=== PATIENT | male | born 1950 | race Hispanic/Latino ===

== ENCOUNTER 2021-02-23 11:19 | Observation (INO) | payer OTHER ==
[~2021-02-23] VITALS: Ht 172.7 cm; Wt 91.0 kg
[2021-02-23] MEDS ORDERED: TETANUS/DIPHTHERIA TOXOID [ADULT] 0.5 ML VIAL IM SCH (12:30)
[2021-02-23] MEDS ORDERED: CYCLOBENZAPRINE HCL 10 MG TABLET PO SCH (12:30)
[2021-02-23] MEDS ORDERED: HYDROCODONE/ACETAMINOPHEN 10/325 MG TAB PO SCH (12:30)
[2021-02-23 13:30] LABS: BASOPHILS % (AUTO) 0.4 % (0.0-5.0); EOSINOPHILS % (AUTO) 0.1 % (0.0-8.0); HEMATOCRIT 47.5 % (42-54); LYMPHOCYTES % (AUTO) 10.6 % (21.0-51.0); MEAN CORPUSCULAR HEMOGLOBIN 28.4 pg (27.0-33.0); MEAN CORPUSCULAR HGB CONC 33.3 g/dL (32.0-36.0); MEAN CORPUSCULAR VOLUME 85.4 fL (79-99); MONOCYTES % (AUTO) 6.6 % (3.0-13.0); NEUTROPHILS % (AUTO) 81.9 % (40.0-77.0); PLATELET COUNT (AUTO) 224 K/uL (130-400); RED BLOOD CELL COUNT(AUTO) 5.56 MIL/uL (4.50-6.20); RED CELL DISTRIBUTION WIDTH 12.3 % (11.0-15.5); WHITE BLOOD COUNT (AUTO) 16.2 K/uL (4.8-10.8)
[2021-02-23 13:35] LABS: CREATININE 1.1 mg/dL (0.5-1.5)
[2021-02-23 13:39] LABS: ALBUMIN 4.4 g/dL (3.5-5.0); BILIRUBIN,TOTAL 0.4 mg/dL (0.2-1.0); TOTAL PROTEIN, SERUM 8.6 g/dL (6.0-8.3)
[2021-02-23] MEDS ORDERED: MORPHINE 4 MG SYG IV PRN (14:00)
[2021-02-23] MEDS ORDERED: HYDROCODONE/ACETAMINOPHEN 5/325 MG TAB PO PRN ×2 (14:00)
[2021-02-23] MEDS ORDERED: ONDANSETRON 4MG INJ IV PRN (14:00)
[2021-02-23] MEDS ORDERED: ACETAMINOPHEN 325 MG TAB PO PRN ×2 (14:00)
[2021-02-23 14:20] LABS: HEMOGLOBIN A1C 6.2 % (4.0-6.0)
[2021-02-23] MEDS: METOPROLOL TARTRATE 25 MG TAB PO SCH ×2 (15:06→22:20)
[2021-02-23 15:39] VITALS: BP 151/81
[2021-02-23 17:37] LABS: APPEARANCE,URINE Clear (CLEAR); BILIRUBIN,URINE Negative (NEGATIVE); COLOR,URINE Yellow (YELLOW); GLUCOSE, URINE (UA) 500 mg/dL (NEGATIVE); KETONES,URINE Negative (NEGATIVE); LEUKOCYTE ESTERASE ,URINE Small (NEGATIVE); NITRATE,URINE Negative (NEGATIVE); OCCULT BLOOD,URINE Moderate (NEGATIVE); PH,URINE 5.5 (5.0-8.0); PROTEIN,URINE Trace mg/dL (NEGATIVE)
[2021-02-23 17:46] LABS: BACTERIA,URINE Rare /HPF (None Seen); CALCIUM OXALATE CRYSTALS,UR Rare /LPF (None Seen); SQUAMOUS EPITHELIAL CELL,UR Rare /HPF (0-2)
[2021-02-23 21:37] VITALS: BP 142/75
[2021-02-23] MEDS: FAMOTIDINE 20MG VIAL IV SCH (22:20)
[2021-02-23 22:26] VITALS: BP 154/74
[2021-02-23] MEDS ORDERED: LISI10TA24 PO (22:29)
[2021-02-23] MEDS ORDERED: TRAM50TA4 PO (22:29)
[2021-02-24] VITALS (25 sets, daily range): BP systolic 109–156; BP diastolic 64–104
[2021-02-24] MEDS: MORPHINE 2 MG SYG IV PRN ×2 (03:26→06:55)
[2021-02-24 04:07] LABS: INR 1.06 (0.85-1.15); PROTHROMBIN TIME 11.5 SEC (9.6-11.6)
[2021-02-24 04:09] LABS: PARTIAL THROMBOPLASTIN TIME 26.5 SEC (26.3-35.5)
[2021-02-24] MEDS ORDERED: ROPIVACAINE 0.5% 5MG/ML 30ML IJ ONE (09:32)
[2021-02-24] MEDS ORDERED: LIDOCAINE PF 100MG/5ML (2%) SYRINGE 5ML ONE (09:33)
[2021-02-24] MEDS ORDERED: DEXAMETHASONE SOD PHOSPHATE 10MG/ML 1ML VIAL ONE (09:33)
[2021-02-24] MEDS ORDERED: ONDANSETRON 4MG INJ ONE (09:33)
[2021-02-24] MEDS ORDERED: ALBUMIN (HUMAN) 5% 250 ML IV ONE (09:33)
[2021-02-24] MEDS ORDERED: SUCCINYLCHOLINE CHLORIDE 20 MG/ML 10 ML VIAL ONE (09:33)
[2021-02-24] MEDS ORDERED: FENTANYL CITRATE PF 50 MCG/1 ML 2ML VIAL ONE ×2 (09:34→12:53)
[2021-02-24] MEDS ORDERED: NEOSTIGMINE 5MG/5ML SYR IV ONE (09:34)
[2021-02-24] MEDS ORDERED: GLYCOPYRROLATE 1 MG/5 ML SYRINGE ONE (09:34)
[2021-02-24] MEDS ORDERED: PROPOFOL 10 MG/ML 20ML VIAL IV ONE (09:34)
[2021-02-24] MEDS ORDERED: ROCURONIUM 10MG/1ML SYR 10 MG/ML ML ONE (09:35)
[2021-02-24] MEDS ORDERED: MIDAZOLAM HCL 1 MG/ML 2ML VIAL ONE (09:35)
[2021-02-24] MEDS ORDERED: EPHEDRINE SULFATE 50 MG/ML AMPULE ONE (09:47)
[2021-02-24] MEDS: FAMOTIDINE 20MG VIAL IV SCH ×2 (09:50→20:40)
[2021-02-24] MEDS ORDERED: LACTATED RINGERS 1000ML 1,000 ML IV ONE (11:49)
[2021-02-24] MEDS ORDERED: CEFAZOLIN SODIUM 1 GM VIAL IVP ONE ×2 (12:45)
[2021-02-24] MEDS ORDERED: CEFAZOLIN SODIUM 1 GM VIAL ONE (12:51)
[2021-02-24] MEDS ORDERED: OXYMETAZOLINE HCL SPRAY 15 ML BOTTLE ONE (12:54)
[2021-02-24] MEDS ORDERED: PHENYLEPHRINE HCL 10 MG/ML 1ML VIAL IV ONE (12:55)
[2021-02-24] MEDS ORDERED: DIPHENHYDRAMINE HCL 25 MG CAPSULE PO PRN (14:30)
[2021-02-24] MEDS ORDERED: POTASSIUM CHLORIDE 10% ELIXIR 20 MEQ/15 ML UDCUP PO PRN (14:30)
[2021-02-24] MEDS: ACETAMINOPHEN 500 MG TABLET PO SCH ×2 (14:30→20:42)
[2021-02-24] MEDS ORDERED: DiphenhydrAMINE HCL 50 MG/ML VIAL IVP PRN (14:30)
[2021-02-24] MEDS ORDERED: FERROUS FUMARATE 324 MG TABLET PO PRN (14:30)
[2021-02-24] MEDS ORDERED: POTASSIUM CHLORIDE 20MEQ/100ML 100 ML IV PRN (14:30)
[2021-02-24] MEDS ORDERED: HYDROCODONE/ACETAMINOPHEN 5/325 MG TAB PO PRN (14:30)
[2021-02-24] MEDS ORDERED: CALCIUM CARB 500MG PO PRN (14:30)
[2021-02-24] MEDS: 0.9%NACL 1000ML 1,000 ML IV SCH ×2 (15:03→23:51)
[2021-02-24] MEDS: CLINDAMYCIN IVPB 900MG/50ML 50 ML IVPB SCH (20:40)
[2021-02-25 00:03] VITALS: BP 137/79
[2021-02-25] MEDS: CLINDAMYCIN IVPB 900MG/50ML 50 ML IVPB SCH (03:32)
[2021-02-25 04:09] VITALS: BP 134/66
[2021-02-25 04:24] LABS: HEMATOCRIT 36.7 % (42-54); MEAN CORPUSCULAR HEMOGLOBIN 28.7 pg (27.0-33.0); MEAN CORPUSCULAR HGB CONC 33.5 g/dL (32.0-36.0); MEAN CORPUSCULAR VOLUME 85.7 fL (79-99); RED BLOOD CELL COUNT(AUTO) 4.28 MIL/uL (4.50-6.20); RED CELL DISTRIBUTION WIDTH 12.3 % (11.0-15.5); WHITE BLOOD COUNT (AUTO) 11.8 K/uL (4.8-10.8)
[2021-02-25 04:42] LABS: CREATININE 0.9 mg/dL (0.5-1.5); POTASSIUM 3.3 mmol/L (3.5-5.1)
[2021-02-25] MEDS: ACETAMINOPHEN 500 MG TABLET PO SCH ×2 (05:06→14:30)
[2021-02-25] MEDS: KCL 20 MEQ ERTAB PO PRN ×3 (05:46→16:45)
[2021-02-25] MEDS: FAMOTIDINE 20MG VIAL IV SCH ×2 (07:47→20:02)
[2021-02-25] MEDS: HYDROCODONE/ACETAMINOPHEN 5/325 MG TAB PO PRN ×4 (07:49→20:24)
[2021-02-25 08:00] VITALS: BP 132/79
[2021-02-25] MEDS ORDERED: POLYETHYLENE GLYCOL 3350 17 GM POWD.PACK PO SCH (09:00)
[2021-02-25] MEDS: 0.9%NACL 1000ML 1,000 ML IV SCH (10:30)
[2021-02-25] MEDS ORDERED: TRAMADOL HCL 50 MG TABLET PO SCH (11:00)
[2021-02-25 12:00] VITALS: BP 142/77
[2021-02-25] MEDS ORDERED: PSYLLIUM SEED 1 EACH PACKET PO SCH (12:00)
[2021-02-25 16:00] VITALS: BP 147/87
[2021-02-25 20:00] VITALS: BP 131/76
[2021-02-26] MEDS ORDERED: BISACODYL 5 MG TABLET.DR PO PRN (14:30)
[2021-02-27] MEDS ORDERED: BISACODYL 10 MG SUPP.RECT RC PRN (14:30)
== END 2021-02-25 22:10 | disposition home or self-care (01) ==
LOC: EDH 11:24 → EDHIP 13:43 → INTOOBSV 13:43 → 4AH 22:04 → UNDODISOB 02-25 19:30
PROVIDERS: ADMIT Internal Medicine; ATTEND Internal Medicine
DX: S42.292A Other displaced fracture of upper end of left humerus, initial encounter for closed fracture (principal); I10 Essential (primary) hypertension; M54.9 Dorsalgia, unspecified; G89.29 Other chronic pain; Z23 Encounter for immunization; V18.0XXA Pedal cycle driver injured in noncollision transport accident in nontraffic accident, initial encounter; Y93.89 Activity, other specified; Y92.89 Other specified places as the place of occurrence of the external cause; Y99.8 Other external cause status
CPT/HCPCS: 23615; 36415 ×3; 71100; 71250; 73030; 73060; 80048; 80053; 81001; 83036; 84484; 85025; 85027; 85610; 85730; 87635; 90471; 90714; 93005; 96361 ×2; 96365; 96366; 96375 ×2; 96376 ×2; 97039; 97116 ×2; 97161; 97530 ×2; 99285; A4215 ×2; A4221 ×2; A4222 ×2; A4223 ×2; A4649 ×2; A4663 ×2; A4930; A6219; A6223; C1713 ×8; C1776 ×2; G0378 ×56; G8978; G8979; G8980; G8981; G8982; G8983; J0330; J0690 ×3; J1100; J2001; J2250; J2370; J2405; J2704; J2710; J2795; J3010 ×2; J3490 ×9; J7030; J7120 ×2; P9045

== ENCOUNTER 2021-02-26 11:24 | Emergency (ER) | payer OTHER ==
[~2021-02-26] VITALS: Ht 172.7 cm; Wt 88.5 kg
[~2021-02-26 11:24] MED LIST: LISI10TA24 PO; TRAM50TA4 PO
[2021-02-26 11:28] VITALS: BP 162/112
[2021-02-26 12:08] LABS: APPEARANCE,URINE Clear (CLEAR); BILIRUBIN,URINE Negative (NEGATIVE); COLOR,URINE Yellow (YELLOW); GLUCOSE, URINE (UA) Negative (NEGATIVE); KETONES,URINE Negative (NEGATIVE); LEUKOCYTE ESTERASE ,URINE Negative (NEGATIVE); NITRATE,URINE Negative (NEGATIVE); OCCULT BLOOD,URINE Small (NEGATIVE); PROTEIN,URINE Negative (NEGATIVE)
[2021-02-26 12:29] LABS: BACTERIA,URINE Few /HPF (None Seen); WBC,URINE 0-1 /HPF (0-1)
[2021-02-26 13:45] VITALS: BP 130/75
== END 2021-02-26 13:46 | disposition home or self-care (01) ==
LOC: EDH 11:24
DX: R33.9 Retention of urine, unspecified (principal); I10 Essential (primary) hypertension; G89.29 Other chronic pain; M54.9 Dorsalgia, unspecified; M25.512 Pain in left shoulder; Z79.899 Other long term (current) drug therapy
CPT/HCPCS: 51702; 81001

== ENCOUNTER 2021-03-01 21:27 | Emergency (ER) | payer OTHER ==
[~2021-03-01] VITALS: Ht 172.7 cm; Wt 89.4 kg
[2021-03-01 22:45] LABS: BILIRUBIN,URINE SMALL (NEGATIVE); GLUCOSE, URINE (UA) NEGATIVE (NEGATIVE); KETONES,URINE NEGATIVE (NEGATIVE); LEUKOCYTE ESTERASE ,URINE NEGATIVE (NEGATIVE); NITRATE,URINE NEGATIVE (NEGATIVE); OCCULT BLOOD,URINE LARGE (NEGATIVE); PH,URINE 5.5 (5.0-8.0); PROTEIN,URINE 100 mg/dL (NEGATIVE); UROBILINOGEN,URINE 0.2 mg/dL (0.2-1.0)
[2021-03-01 22:51] LABS: APPEARANCE,URINE CLOUDY (CLEAR); COLOR,URINE AMBER (YELLOW)
[2021-03-01 22:56] LABS: RBC,URINE TNTC /HPF (0-1)
[2021-03-01 22:57] LABS: BACTERIA,URINE Rare /HPF (None Seen)
[2021-03-01 22:58] LABS: SQUAMOUS EPITHELIAL CELL,UR None Seen /HPF (0-2)
[2021-03-01] MEDS ORDERED: CEFTRIAXONE 1G VIAL IM ONE (23:00)
[2021-03-01] MEDS ORDERED: CEPH500B PO (23:02)
[2021-03-01] MEDS ORDERED: LIDOCAINE HCL-MPF 1% 2ML VIAL ONE (23:06)
[2021-03-01 23:09] VITALS: BP 143/60
== END 2021-03-01 23:58 | disposition home or self-care (01) ==
LOC: EDH 21:27
DX: R33.9 Retention of urine, unspecified (principal); N39.0 Urinary tract infection, site not specified; I10 Essential (primary) hypertension; Z79.899 Other long term (current) drug therapy
CPT/HCPCS: 51702; 81001; 87088; 96372; 99284; J0696; J3490

== ENCOUNTER 2024-11-14 16:36 | Emergency (ER) | payer OTHER ==
[~2024-11-14] VITALS: Ht 172.7 cm; Wt 90.7 kg
[~2024-11-14 16:36] MED LIST changes: +CEPH500B PO
--- NOTE | 2024-11-14 16:45 | ERN ---
General Chief Complaint: Finger Injury Stated Complaint: LEFT HAND ACCIDENT SAW Time Seen by MD: 16:38 Source: patient History of Present Illness Initial Comments This is a 74-year-old male coming in to be evaluated for left hand injury. Per patient he was working on his band saw and accidentally cut his left hand 2nd and 3rd digits. Allergies: Coded Allergies: No Known Drug Allergies (Unverified Allergy, Unknown, 02/23/21) Home Meds Active Scripts Cephalexin Monohydrate (Keflex) 500 Mg Cap, 500 MG PO TID, #21 CAP Prov:LORIN RAUSCH 03/01/21 Reported Medications Tramadol Hcl (Tramadol HCl) 50 Mg Tablet, 50 MG PO Q6HPRN PRN for PAIN LEVEL 1 TO 5, TAB 02/23/21 Lisinopril (Lisinopril) 10 Mg Tablet, 10 MG PO DAILY, TAB 02/23/21 Past Medical History Past Medical History: Hypertension Medical History Other: CHRONIC BACK PAIN Surgical History Other: LEFT SHOULDER SX Social History Social History: Lives with family ROS Dictation CONSTITUTIONAL: No chills, no fever, no weakness, no diaphoresis, no malaise. HEAD/FACE: No signs of trauma. EENT: No eye pain, no blurred vision, no tearing, no double vision, no ear pain, no ear discharge, no nose pain, no nasal congestion, no throat pain, no throat swelling, no mouth pain. RESPIRATORY: No cough, no orthopnea, no SOB, no stridor, no wheezing. CARDIOVASCULAR: No chest pain, no edema, no palpitations, no syncope. GASTROINTESTINAL/ABDOMINAL: No abdominal pain, no constipation, no diarrhea, no nausea, no vomiting. GENITOURINARY: No abnormal discharge, no dysuria, no frequent urination, no hematuria. No complaints of pain in the genitals. MUSCULOSKELETAL: No back pain, no gout, no joint pain, no joint swelling, no muscle pain, no muscle stiffness, no neck pain. INTEGUMENTARY: No change in color, no change in hair/nails, no dryness, lesion, no lumps, no rash. NEUROLOGICAL/PSYCH: No anxiety, not depressed, no emotional problem, no headache, no numbness, no pre-existing deficit, no history of seizures, no tremors, no weakness. HEMATOLOGIC/LYMPHATIC: Not anemic, no history of blood clots, no apparent bleeding, no bruising, glands not swollen. All Systems Negative, Except as Noted. Physical Exam Physical Exam Dictation VITAL SIGNS: Reviewed. GENERAL APPEARANCE: Alert, oriented x3, no acute distress, obese. HEAD AND FACE: Non-traumatic. EYES: PERRL, pink conjunctivas, eyelid no trauma, anterior chamber clear. EARS: Pinnas intact and no signs of trauma or erythema. Ear canals clear and no discharge. TMs no erythema. NOSE: No discharge, no bleeding. OROPHARYNX: Mouth normal, teeth no caries, tongue pink. Pharynx clear, no erythema. Tonsils no exudates, no abscesses noted. Mucous membrane moist. NECK: Supple, non-tender, no thyromegaly, no masses, no JVD, no bruits. BREAST: Deferred. CHEST: No tenderness, no crepitus, no paradoxical movement, no retractions. LUNGS: Clear, well-ventilated, symmetric, no rales, no wheezing, no rhonchi, no stridor, good breath sounds bilaterally. HEART: Regular rate, regular rhythm, no murmur, no gallops. VASCULAR: No peripheral edema. ABDOMEN: Soft, positive bowel sounds, nondistended, no guarding, nontender, no rebound, no masses no hepatomegaly, no splenomegaly, no Naylor's sign, no hernias. RECTAL: Deferred. GENITAL: Deferred. NEUROLOGICAL: Normal speech, gross motor function intact, gross sensory function intact. MUSCULOSKELETAL: Neck nontender, full range of motion, back nontender, full range of motion. EXTREMITIES: Nontender, full range of motion. Left hand 2nd and 3rd digit distal partial amputation. SKIN: Color pink, dry, no turgor, no rash, no lacerations, no abrasions, no contusions. LYMPHATICS: Deferred. Results Laboratory and Microbiology Labs Reviewed?: Yes EKG/XRAY/US/CT/MRI X-RAY Comment IMAGING REPORT Signed PATIENT: LEIF KILPATRICK MR#: [id number] : 1950 SEX: M AGE: 74 LOCATION: [facility] ORDER [id number] STATUS: [facility] REPORT#: [id number] SERVICE [id number] REASON: finger amputation ORDERING PHYSICIAN: LISSETTE WILCOX MD PROCEDURE: HAND 3V LT - HAND 3+VWS LT LEFT HAND RADIOGRAPHS - 3 VIEWS INDICATION: Pain COMPARISON: None FINDINGS: AP, lateral, and oblique views. Amputation of the distal third digit to the level of the proximal metaphysis of the third distal phalanx, and nondisplaced miniscule cortical fracture fragments along the stump. Amputation of the distal index finger includes amputation of the distal margin of the second distal phalangeal tuft. Chronic mild flexion deformity of the fifth distal interphalangeal joint. No acute fracture of subluxation identified. Remodeling of the ulnar styloid process may be related to remote injury and 9 mm accessory ossicle noted at the same level. Scaphoid bone is intact. Carpal alignment and ulnar variance is within normal limits. Mild arterial wall calcific plaque. IMPRESSION: Amputation of the distal third digit to the level of the proximal metaphysis of the third distal phalanx, and nondisplaced miniscule cortical fracture fragments along the stump. Amputation of the distal index finger includes amputation of the distal margin of the second distal phalangeal tuft. DICTATED BY: HIGINIO ROQUE MD DATE: 11/14/241802 ELECTRONICALLY SIGNED BY: HIGINIO ROQUE MD DATE: 11/14/241806 [facility] MDM: Differential diagnosis: PARTIAL FINGER AMPUTATION, LACERATION, DISTAL PHALANX FRACTURE Rationale: Tests considered and ordered secondary to shared decision making include: Previous outside records reviewed: Old ER visits. Risk of complication and/or morbidity or mortality of patient management: None PATIENT IS A 74-YEAR-OLD GENTLEMAN COMING IN TO BE EVALUATED FOR LEFT HAND PAIN. ON PHYSICAL EXAM PATIENT HAS A PARTIAL DISTAL AMPUTATION OF LEFT HAND 2ND AND 3RD DIGIT. LESIONS WERE CLEANED AND STERILIZED ANESTHESIA WAS PERFORMED USING DIGITAL BLOCK. USING ETHILON 3-0 SUTURES WERE PLACED RUNNING CLOSING THE PARTIAL AMPUTATION THE 3RD DIGIT HEMOSTASIS OBTAINED, 2ND DIGIT DISTAL PARTIAL AMPUTATION FLOWS USING ETHILON 4-0 . SIX SUTURES ON DISTAL 3RD AND SIX SUTURES ON DISTAL SEC. PATIENT WILL BE DISCHARGED IN STABLE CONDITION WITH ANTIBIOTICS. ED Course Orders Procedure Category Date Status Time Cefazolin Sodium 1 Gm PHA 11/14/24 In Process Vial (Ancef 1 Gm V 17:00 Diph,Pertuss(Acell),Tet PHA 11/14/24 Complete Vac/Pf (Tdap) 17:00 Lidocaine Hcl 1% 20ml PHA 11/14/24 In Process Vial (Lidocaine Hc 16:42 Laceration Tray Set CPOE 11/14/24 Transmitted Up (Er) 16:50 Wound Care (Er) CPOE 11/14/24 Transmitted 16:50 Hand 3+Vws Lt RAD 11/14/24 Resulted 16:53 Tetanus,Diphtheria PHA 11/14/24 Complete Tox [Adult] (Diphther 18:00 Current Medications Medications (Trade) Dose Ordered Sig/Joe Route PRN Reason Start Time Stop Time Status Last Admin Dose Admin Cefazolin Sodium (ANCEF 1 gm vial) 2 gm ONCE IVPB 11/14/24 17:00 11/14/24 21:00 11/14/24 17:58 Diphtheria/ Tetanus/Acell Pertussis (Tdap) 0.5 ml ONCE ONCE IM 11/14/24 17:00 11/14/24 17:59 DC Lidocaine HCl (Lidocaine HCl 1% 20ml Vial) 20 ml ONCE INJ 11/14/24 16:42 11/14/24 21:00 11/14/24 17:57 Tetanus/ Diphtheria Toxoids Adsorbed (DiphthERIA-teTANUS TOXOID [ADULT]/ DECAVAC) 0.5 ml ONCE ONCE IM 11/14/24 18:00 11/14/24 18:10 DC 11/14/24 18:20 Vital Signs Date Time Temp Pulse Resp B/P (MAP) Pulse Ox O2 Delivery O2 Flow Rate FiO2 11/14/24 16:42 98.2 91 20 141/85 97 0 Laceration/Wound Repair Laceration/Wound Repair : Wound Location: upper extremity Wound Length (cm): 4 Wound's Depth, Shape: into muscle Wound Explored: clean Irrigated w/ Saline (ccs): 100 Anesthesia: 1% Lidocaine Volume Anesthetic (ccs): 8 Wound Debrided: minimal Wound Repaired With: sutures Suture Size/Type: 3:0 Number of Sutures: 12 Layer Closure?: Yes DX & DISP Disposition: Discharge Departure Impression: Primary Impression: Partial traumatic amputation of finger through phalanx Condition: Stable Scripts Hydrocodone/Acetaminophen (Hydrocodon-Acetaminoph 2.5-325) 2.5 Mg-325 Mg Tablet 1 TAB PO BID PRN for PAIN LEVEL 6 TO 10 for 3 Days, #6 TAB 0 Refills Prov: LISSETTE WILCOX MD 11/14/24 Cephalexin Monohydrate (Keflex) 500 Mg Cap 1 CAP PO TID for 10 Days, #30 CAP 0 Refills Prov: LISSETTE WILCOX MD 11/14/24 Additional Instructions: FOLLOW-UP WITH PRIMARY CARE PROVIDER IN 1 TO 2 DAYS. TAKE MEDICATIONS DIRECTED HERE IN THE EMERGENCY ROOM. OKAY TO CONTINUE HOME MEDICATIONS UNLESS OTHERWISE DISCUSSED DURING YOUR VISIT IN THE EMERGENCY ROOM TODAY. RETURN TO YOUR NEAREST EMERGENCY ROOM IF SYMPTOMS WORSEN OR IF THERE IS NO IMPROVEMENT. CALL 911 IF YOU NEED IMMEDIATE ASSISTANCE. TAKE TYLENOL CGSC-TOX-MWDPWCS NEEDED AND IF NO CONTRAINDICATIONS ARE PRESENT. INCREASE ORAL HYDRATION. A WOUND CULTURE OR URINE CULTURE WAS ORDERED HERE IN THE EMERGENCY ROOM DEPARTMENT PLEASE FOLLOW-UP WITH PRIMARY CARE PROVIDER AND ADVISE THEM TO GET REPEAT PORTS FROM OUR FACILITY. IF YOU HAD ANY MELY WRAP/SPLINTS THAT WERE APPLIED HERE, PLEASE DO NOT REMOVE THEM UNTIL YOU SEE YOUR PRIMARY CARE OR SPECIALTY. REFERRALS: Referrals: ANA RAMIRES MD (PCP) RONNY AGUILAR MD Time of Disposition: 18:31 LISSETTE WILCOX MD Nov 14, 2024 16:45
[2024-11-14] MEDS ORDERED: DIPH,PERTUSS(ACELL),TET VAC/PF 0.5 ML VIAL IM ONE (17:00)
--- NOTE | 2024-11-14 17:43 | NUR ---
ASSUMED CARE AT THIS TIME
[2024-11-14] MEDS: LIDOCAINE HCL 1% 20 ML VIAL INJ SCH (17:57)
[2024-11-14] MEDS: ceFAZolin SODIUM 1 GM VIAL IVPB SCH (17:58)
--- NOTE | 2024-11-14 18:07 | HMCIMG ---
LEFT HAND RADIOGRAPHS - 3 VIEWS INDICATION: Pain COMPARISON: None FINDINGS: AP, lateral, and oblique views. Amputation of the distal third digit to the level of the proximal metaphysis of the third distal phalanx, and nondisplaced miniscule cortical fracture fragments along the stump. Amputation of the distal index finger includes amputation of the distal margin of the second distal phalangeal tuft. Chronic mild flexion deformity of the fifth distal interphalangeal joint. No acute fracture of subluxation identified. Remodeling of the ulnar styloid process may be related to remote injury and 9 mm accessory ossicle noted at the same level. Scaphoid bone is intact. Carpal alignment and ulnar variance is within normal limits. Mild arterial wall calcific plaque. IMPRESSION: Amputation of the distal third digit to the level of the proximal metaphysis of the third distal phalanx, and nondisplaced miniscule cortical fracture fragments along the stump. Amputation of the distal index finger includes amputation of the distal margin of the second distal phalangeal tuft.
[2024-11-14] MEDS: teTANUS/diphthERIA TOXOID [ADULT] 0.5 ML VIAL IM ONE (18:20)
[2024-11-14] MEDS ORDERED: CEPH500B PO (18:33)
[2024-11-14] MEDS ORDERED: HYDR-4766 PO (18:33)
[2024-11-14 18:44] VITALS: BP 135/79; PULSE 90; RESP 20; TEMP 98.2; O2SAT 97
--- NOTE | 2024-11-15 10:48 | NUR ---
PRESCRIPTION ISSUE: THE PT CAME IN D/T HIM BEING UNABLE TO GET HIS NORCO 2.5/ACTEAMINOPHEN PRESCRIPTION SCRIPTED AT HIS PHARMACY D/T THE PRESCRIPTION NOT BEING ON A TRIPLICET PRESCRIPTION FORM. I CALLED [facility] TO INCLUDE THE PTS AND THEY ALL SAID THE SAME THING ABOUT THE TRIPLECET FORMS. GERRY WATSON ED DIRECTOR WAS INFORMED AND HE GAVE AN OPTION OF THE ON SITE ED MD (DR CHAU) MIGHT BE ABLE TO REWRITE OR PRESCRIBE ANOTHER MEDIATION. DR Walker" WAS ASKED BUT STATED HE HAS NO TRIPLECET AUTHORITY FOR NARCOTICS. I REVIEWED WITH THE PT TWO ALTERNATIVES. 1. DR CHAU SUGGESTED IF THE PT HAD PAIN THAT WAS EXTREME, HE COULD SIGN I AGAIN FOR PAIN MANAGEMENT FOR THE ED ONLY. 2 I MADE A SUGGESTION THAT THE PT MAY TRY OTC ANALGESICS AND ALTERNATE THEM TO ATTEMPT TO KEEP HIS PAIN LEVEL AT A MINIMUM (NAPROXEN, ACETAMINOPHEN AND/OR IBUPROFEN) PT STATED HE WOULD TRY THAT FOR 24HRS AND IF HIS PAIN IS NOT GENERALLY MANAGED, HE WOULD RETURN FOR PAIN CONTROL WITNESS DURING INTERACTION: OPHELIA CASTANEDA METHODS STUDY ANALYST/NURSE GRADUATE
== END 2024-11-14 19:23 | disposition home or self-care (01) ==
LOC: EDH 16:36
DX: S68.121A Partial traumatic metacarpophalangeal amputation of left index finger, initial encounter (principal); S68.123A Partial traumatic metacarpophalangeal amputation of left middle finger, initial encounter; I10 Essential (primary) hypertension; Z79.899 Other long term (current) drug therapy; W45.8XXA Other foreign body or object entering through skin, initial encounter; Y93.89 Activity, other specified; Y92.89 Other specified places as the place of occurrence of the external cause; Y99.8 Other external cause status
CPT/HCPCS: 99284; 12042; 96365; 90714; 73130; 90471; J0690; 90715

== ENCOUNTER 2024-12-29 05:46 | Day surgery (SDC) | payer OTHER ==
[2024-12-25 11:54] LABS: BASOPHILS # (AUTO) 0.04 K/uL (0.00-0.20); BASOPHILS % (AUTO) 0.5 % (0.0-5.0); EOSINOPHILS # (AUTO) 0.11 K/uL (0.00-0.70); EOSINOPHILS % (AUTO) 1.3 % (0.0-8.0); HEMATOCRIT 45.8 % (42-54); IMMATURE GRANULOCYTE ABSOLUTE 0.03 K/uL (0-1); LYMPHOCYTES # (AUTO) 2.5 K/uL (1.0-4.8); LYMPHOCYTES % (AUTO) 29.5 % (21.0-51.0); MEAN CORPUSCULAR HEMOGLOBIN 29.1 pg (27.0-33.0); MEAN CORPUSCULAR HGB CONC 34.3 g/dL (32.0-36.0); MONOCYTES # (AUTO) 0.5 K/uL (0.1-1.0); MONOCYTES % (AUTO) 5.9 % (3.0-13.0); NEUTROPHILS # (AUTO) 5.3 K/uL (1.8-7.7); NEUTROPHILS % (AUTO) 62.4 % (40.0-77.0); PLATELET COUNT (AUTO) 168 K/uL (130-400); RED BLOOD CELL COUNT(AUTO) 5.39 MIL/uL (4.50-6.20); RED CELL DISTRIBUTION WIDTH 12.4 % (11.0-15.5); WHITE BLOOD COUNT (AUTO) 8.4 K/uL (4.8-10.8)
[2024-12-25 12:05] LABS: CREATININE 0.9 mg/dL (0.5-1.3); POTASSIUM 3.3 mmol/L (3.5-5.1)
[2024-12-25 12:08] LABS: INR 1.02 (0.85-1.15); PROTHROMBIN TIME 10.8 SEC (9.6-11.6)
[2024-12-25 12:09] LABS: PARTIAL THROMBOPLASTIN TIME 27.5 SEC (26.3-35.5)
[2024-12-25 14:32] VITALS: BP 179/75; PULSE 78; RESP 18; TEMP 99
[2024-12-29] VITALS (17 sets, daily range): BP systolic 119–159; BP diastolic 79–91; PULSE 61–91; RESP 12–18; TEMP 97.6–98.4
[~2024-12-29] VITALS: Ht 170.2 cm; Wt 91.4 kg
[~2024-12-29 05:46] MED LIST changes: -CEPH500B PO; +FINA5TAB41 PO; -LISI10TA24 PO; +LISI1TAB51 PO; +TAMS-55 PO; -TRAM50TA4 PO
[2024-12-29] MEDS ORDERED: LACTATED RINGERS 1000ML 1,000 ML IV ONE (05:50)
[2024-12-29] MEDS ORDERED: FAMOTIDINE 20MG VIAL IV ONE (06:45)
[2024-12-29] MEDS ORDERED: acetaMINOPHEN 100 ML ONE (06:45)
--- NOTE | 2024-12-29 06:47 | EKG ---
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
[2024-12-29] MEDS ORDERED: FENTanyl CITRate PF 50 MCG/1 ML 2ML VIAL ONE (06:52)
[2024-12-29] MEDS ORDERED: proPOFol 10 MG/ML 20ML VIAL IV ONE (06:52)
[2024-12-29] MEDS ORDERED: LIDOCAINE PF 100MG/5ML (2%) SYRINGE 5ML ONE (06:52)
[2024-12-29] MEDS ORDERED: dexaMETHasone SOD PHOSPHATE 10MG/ML 1ML VIAL ONE (07:24)
[2024-12-29] MEDS ORDERED: ondanSETRON 4MG INJ ONE (07:24)
[2024-12-29] MEDS: ceFAZolin SODIUM 2 GM VIAL ONE (07:30)
[2024-12-29] MEDS ORDERED: ACET-2079 PO (07:36)
[2024-12-29] MEDS: BUPIvacaine/PF 0.25% 30ML VIAL IJ ONE (08:10)
[2024-12-29] MEDS: morPHINE 2 MG SYG ONE ×2 (08:42→08:56)
--- NOTE | 2024-12-29 16:54 | OP ---
Operative Note: DATE OF PROCEDURE: 12/29/24 SURGEON: RONNY AGUILAR MD DICE MANAGER: Amada Bob ANESTHESIA: General ANESTHESIOLOGIST/TYPE ROLLING MACHINE OPERATOR: Marlyn Castillo PREOPERATIVE DIAGNOSIS: Traumatic partial amputation of left index and middle fingers through the distal phalanx POSTOPERATIVE DIAGNOSIS: Traumatic partial amputation of left index and middle fingers through the distal phalanx PROCEDURE: Revision amputation of left index and middle fingers through the distal phalanx ESTIMATED BLOOD LOSS: None INDICATIONS: 74-year-old male who sustained a saw injury to left hand proximally 2-3 weeks ago that was initially treated in the emergency room. Patient underwent irrigation debridement of the digits in the emergency room wit h wound closure. He presented to our clinic with signs of necrosis of the tissue over the tip of his middle finger we discussed possible revision amputation. Today as he presented for surgery he had further appearance of necrotic tissue over the tip of the index finger as well. We discussed the risks, benefits, and alternatives to undergoing revision amputation of left index and middle fingers of the patient desired to proceed with surgery. DESCRIPTION OF PROCEDURE: Patient was properly identified in the preoperative holding area. Surgical site marking was verified and surgery consent reviewed. The patient was then taken to the operating room and placed in supine position on the OR table. After induction of general anesthesia, preoperative antibiotics were given, all bony prominences were well-padded, and a well padded tourniquet was applied but not inflated at this time. The left upper extremity was then prepped and draped in usual sterile fashion. Surgical timeout was done verifying correct surgery, side, site, and location to be performed. We then began the procedure by exsanguinating the limb with an Esmarch and inflating the tourniquet to 200 mm Hg. We then debrided the necrotic tissue from the tip of the index finger. Here the majority of his distal phalanx was intact. The overlying nail bed had some damage. We went ahead and elected to remove the fingernail from the index finger to better examine the remaining tissues. We then were able to visualize the remaining tip of the distal phalanx and appropriately evaluate the nail bed. Using a rongeur we resected back some of the distal phalanx and some of the tissue along the radial border of the index finger. In doing so, we were able to more closely approximate the skin flaps to the edges of the nail bed. We then thoroughly irrigated out the wound on the index finger and repaired the skin over the tip of the distal phalanx using 3-0 chromic gut suture. We replaced the fingernail within the nail fold to stent it open. This is held in place with 3-0 chromic gut suture placed on either side. We then focused our attention on the middle finger. Once we debrided the dry gangrenous tissue from the tip of the finger we identified a small portion of the fingernail buried within the wound. This was excised as well. We then identified the germinal matrix for the fingernail was damaged but still intact. We elected to go ahead and excise this using a 15 blade and rongeur since it was too close to the tip of the amputation site to comfortably develop a finger nail. We then rongeured back some of the remaining distal phalanx to allow for further mobilization of the soft tissue. We debulked some of the extra soft tissue along the radial border of the amputation site using a rongeur to remove subcutaneous tissue in this region. We then thoroughly irrigated out the wound on the middle finger. We used the 3-0 chromic gut suture to approximate the skin and soft tissue over the remaining distal phalanx. Digital block was then performed across the bases of the index and middle finger using 0.25% Marcaine. Sterile soft dressing was applied with Xeroform, 4x4s, clean, and a Coban. The tourniquet was then deflated. The patient was awakened from anesthesia and taken to the recovery room in stable condition. RONNY AGUILAR MD Dec 29, 2024 16:54
== END 2024-12-29 10:00 | disposition home or self-care (01) ==
LOC: DAH 05:46
PROVIDERS: ATTEND Student in an Organized Health Care Education/Training Program
DX: S68.623A Partial traumatic transphalangeal amputation of left middle finger, initial encounter (principal); S68.621A Partial traumatic transphalangeal amputation of left index finger, initial encounter; M79.642 Pain in left hand; I10 Essential (primary) hypertension; F41.9 Anxiety disorder, unspecified; E78.5 Hyperlipidemia, unspecified; Z79.899 Other long term (current) drug therapy; Z98.890 Other specified postprocedural states; Z80.8 Family history of malignant neoplasm of other organs or systems; X58.XXXA Exposure to other specified factors, initial encounter; Y93.89 Activity, other specified; Y92.89 Other specified places as the place of occurrence of the external cause; Y99.8 Other external cause status
CPT/HCPCS: 80048; 85025; 85610; 85730; 36415; 26951 ×2; 93005; 82948; A4663; J7120 ×2; A4606; A4649 ×3; J3490; J3010; J1100; J2270 ×2; J0665; J2003; J2704; J2405; J0690; A6445; A6223; A5120; A4215; A4213; A4222; A4221; A4216; A4223